=== PATIENT | male | born 1995 | race Two or more races ===

== ENCOUNTER 2018-07-05 06:06 | Emergency (ER) | payer SELFPAY ==
[~2018-07-05] VITALS: Ht 167.6 cm; Wt 55.0 kg
[2018-07-05] MEDS ORDERED: KETOROLAC 30MG/ML VIAL IV STA (06:53)
[2018-07-05] MEDS ORDERED: ONDANSETRON HCL 4MG/2ML INJ IV STA (06:53)
[2018-07-05] MEDS ORDERED: SODIUM CHLORIDE 0.9% 1,000 ML IV ONE (06:53)
[2018-07-05 07:09] LABS: HEMATOCRIT. 44.5 % (42.0-52.0); HEMOGLOBIN. 15.3 g/dL (14.0-18.0); MEAN CORPUSCULAR HEMOGLOBIN 32.5 pg (28.0-32.0); MEAN CORPUSCULAR VOLUME 94.3 fL (80.0-94.0); MEAN PLATELET VOLUME 10.3 fl (7.4-10.4); PLATELET 197 x1000/uL (130-400); RED BLOOD CELL COUNT 4.72 mill/uL (4.7-6.1); RED CELL DISTRIBUTION WIDTH 12.1 % (11.6-14.6)
[2018-07-05 07:11] LABS: CHLORIDE 98 mEq/L (98-107); INR 1.2; PROTHROMBIN TIME 11.6 sec (9.1-11.1)
[2018-07-05 07:15] LABS: ETHANOL BLOOD < 10 mg/dL
[2018-07-05 07:45] LABS: PLATELET ESTIMATE NORMAL
[2018-07-05] MEDS ORDERED: POTASSIUM CHLORIDE 20MEQ TABLET SR PO ONE (08:45)
[2018-07-05 08:57] VITALS: BP 128/71
== END 2018-07-05 09:33 | disposition home or self-care (01) ==
LOC: ER 06:06
DX: R10.9 Unspecified abdominal pain (principal); F17.200 Nicotine dependence, unspecified, uncomplicated
CPT/HCPCS: 36415; 74176; 80053; 83690; 85025; 85610; 96361; 96374; 96375; 99284; G0482; J1885; J2405; J7030

== ENCOUNTER 2018-10-17 05:44 | Emergency (ER) | payer SELFPAY ==
[~2018-10-17] VITALS: Ht 170.2 cm; Wt 55.0 kg
[2018-10-17 05:55] VITALS: BP 149/131
[2018-10-17] MEDS ORDERED: ONDANSETRON HCL 4MG/2ML INJ IV STA (06:45)
[2018-10-17] MEDS ORDERED: KETOROLAC 30MG/ML VIAL IV STA (06:45)
== END 2018-10-17 06:50 | disposition left against medical advice (07) ==
LOC: ER 05:44
DX: R10.9 Unspecified abdominal pain (principal)
CPT/HCPCS: 99283

== ENCOUNTER 2018-10-18 08:48 | Emergency (ER) | payer SELFPAY ==
[~2018-10-18] VITALS: Ht 167.6 cm; Wt 55.0 kg
[2018-10-18] MEDS ORDERED: ACETAMINOPHEN 325MG TABLET PO STA (09:48)
[2018-10-18 10:00] LABS: CHLORIDE 100 mEq/L (98-107)
[2018-10-18] MEDS ORDERED: ONDANSETRON 4MG/5ML UDC PO ONE (10:00)
[2018-10-18 10:05] LABS: BASOPHILS % 0.3 % (0.0-2.0); HEMATOCRIT. 45.6 % (42.0-52.0); HEMOGLOBIN. 15.6 g/dL (14.0-18.0); INR 1.1; LYMPHOCYTES % 11.2 % (20.0-50.0); MEAN CORPUSCULAR HEMOGLOBIN 32.7 pg (28.0-32.0); MEAN CORPUSCULAR VOLUME 95.9 fL (80.0-94.0); MEAN PLATELET VOLUME 10.6 fl (7.4-10.4); NEUTROPHILS % 76.5 % (40.0-76.0); PLATELET 208 x1000/uL (130-400); PROTHROMBIN TIME 11.4 sec (9.6-11.0); RED BLOOD CELL COUNT 4.76 mill/uL (4.7-6.1); RED CELL DISTRIBUTION WIDTH 12.4 % (11.6-14.6)
[2018-10-18 10:15] VITALS: BP 120/79
== END 2018-10-18 10:15 | disposition left against medical advice (07) ==
LOC: ER 08:48
DX: R10.84 Generalized abdominal pain (principal); R11.2 Nausea with vomiting, unspecified; F41.9 Anxiety disorder, unspecified; F12.10 Cannabis abuse, uncomplicated
CPT/HCPCS: 36415; 80053; 83690; 85025; 85610; 99283; Z7610

== ENCOUNTER 2018-11-20 21:42 | Emergency (ER) | payer SELFPAY ==
[~2018-11-20] VITALS: Ht 167.6 cm; Wt 65.0 kg
[2018-11-20 21:56] VITALS: BP 124/82
== END 2018-11-21 04:04 | disposition left against medical advice (07) ==
LOC: ER 21:42
DX: R51 Headache (principal); Z53.21 Procedure and treatment not carried out due to patient leaving prior to being seen by health care provider

== ENCOUNTER 2018-11-21 16:52 | Emergency (ER) | payer SELFPAY ==
[~2018-11-21] VITALS: Ht 167.6 cm; Wt 53.0 kg
[2018-11-21] MEDS ORDERED: HYDROCODONE/ACETAMINOPHEN 5/325MG TABLET PO STA (19:46)
[2018-11-21 20:58] VITALS: BP 101/98
== END 2018-11-21 20:59 | disposition home or self-care (01) ==
LOC: ER 16:52
DX: S30.0XXA Contusion of lower back and pelvis, initial encounter (principal); F12.10 Cannabis abuse, uncomplicated; V91.39XA Hit or struck by falling object due to accident to unspecified watercraft, initial encounter; Y93.89 Activity, other specified; Y92.89 Other specified places as the place of occurrence of the external cause; Y99.8 Other external cause status
CPT/HCPCS: 72100; 99283